=== PATIENT | female | born 1975 | race Caucasian/White ===

== ENCOUNTER 2024-02-16 22:43 | Emergency (ER) | payer OTHER, SELFPAY ==
--- NOTE | ~2024-02-16 | CT_ITS ---
EXAMINATION: CT abdomen pelvis wo con DATE: 02/17/2024 00:10 INDICATION: Left flank pain. TECHNIQUE: Computed tomography (CT) of the abdomen and pelvis was performed without intravenous contr ast. Automated exposure control and iterative reconstruction technique were employed. The dose-length product was 1580.15 mGy-cm. COMPARISON: None. FINDINGS: The visualized portions of the lung bases are clear without pneumonia or pleural effusion. The heart size is normal. No pericardial effusion. There is a small sliding hiatal hernia. The liver is normal. There is a gallstone in the gallbladder, which is normal in size. The spleen, pancreas, an d adrenal glands are normal. There is a 4 mm stone in right kidney. There is mild left hydronephrosis and hydroureter. There is a 6 mm stone in distal left ureter. There are no dilated loops of bowel. T he appendix is normal. There are no pathologically enlarged lymph nodes. There is no free intraperito priti fluid. There is mild thoracic and lumbar spondylosis. IMPRESSION: 1. 6 mm stone in distal left ureter with mild left hydronephrosis and hydroureter. 2. 4 mm nonobstructing right kidney stone. 3. Small sliding hiatal hernia. Reviewed, dictated and finalized at location E. IMPRESSION: 1. 6 mm stone in distal left ureter with mild left hydronephrosis and hydrouret er. 2. 4 mm nonobstructing right kidney stone. 3. Small sliding hiatal hernia.
[2024-02-16 22:52] VITALS: BP 168/81; PULSE 83; RESP 23; TEMP 37.1; O2SAT 100
[2024-02-16 23:07] LABS: Basophils Absolute Auto 0.1 K/mm3 (0.0-0.1); Basophils Percent Auto 0.5 % (0.2-1.2); Eosinophils Absolute Auto 0.2 K/mm3 (0-0.3); Eosinophils Percent Auto 1.6 % (0-4.4); Hematocrit 37.2 % (37.0-47.0); Hemoglobin 12.6 g/dL (12.0-15.0); Immature Granulocyte Absolute 0.06 K/mm3 (0.00-0.031); Immature Granulocyte Percent A 0.5 % (0-0.5); Lymphocytes Absolute Auto 2.45 K/mm3 (0.9-3.2); Lymphocytes Percent Auto 21.2 % (18.3-44.2); Mean Corpuscular HGB Conc 33.9 g/dl (32-36); Mean Corpuscular Volume 91.6 fl (80-100); Mean Platelet Volume 9.4 fl (7.4-10.4); Monocytes Absolute Auto 0.6 K/mm3 (0.1-0.6); Monocytes Percent Auto 4.9 % (2.6-8.5); Neutrophils Absolute Auto 8.2 K/mm3 (1.3-6.7); Neutrophils Percent Auto 71.3 % (45.5-73.1); Platelet Count Result 228 k/mm3 (150-375); Red Blood Count 4.06 M/mm3 (4.2-5.4); Red Cell Distribution Width 12.1 % (11.5-14.5); White Blood Count 11.6 K/mm3 (4.5-10.0)
[2024-02-16 23:19] LABS: Alanine Aminotransferase 21 U/L (6-35); Albumin Level 4.4 g/dL (3.5-5.1); Alkaline Phosphatase 94 U/L (38-126); Anion Gap 7 mmol/L (4-12); Aspartate Amino Transferase 25 U/L (14-36); Bilirubin,Total 0.4 mg/dL (0.2-1.3); Blood Urea Nitrogen 16 mg/dL (7-17); Calcium 8.8 mg/dL (8.4-10.2); Carbon Dioxide 27 mmol/L (22-30); Chloride 104 mmol/L (98-107); Estimated CRCL calculation 82 ml/min; Estimated Glomerular Filt Rate 53; Glucose 120 mg/dL (65-110); Lipase 186 U/L (23-300); Potassium 3.6 mmol/L (3.4-5.0); Sodium 138 mmol/L (137-145)
--- NOTE | 2024-02-16 23:24 | PC.NURSE ---
Pt continues to be restless on stretcher, with c/o 10/10 pain. DARRYN Mock notified.
--- NOTE | 2024-02-16 23:31 | ECG_ITS ---
SEE SCANNED COPY FOR CONFIRMED REPORT MTDD
--- NOTE | 2024-02-16 23:34 | ED.ABDPAIN ---
HPI - Abdominal Pain General Chief Complaint: Abdominal Pain Stated Complaint: abdominal pain Time Seen by Provider: 02/16/24 23:01 Source: patient Limitations: no limitations History of Present Illness HPI narrative: Patient is a 48-year-old female presented emergency department complaining of left flank pain and left lower quadrant abdominal pain that seem to be connected, started a couple hours ago, feels like a history of something she has had the past in which she thinks she had a kidney stone at that time, notes the pain is constant, describes the pain is all of the above when trying to describe the nature of the pain, has an OCD making the pain better or worse, missed associated nausea, has not tried anything for the pain. Patient denies any recent injuries or recent illness. Patient denies diarrhea. Patient has some urinary discomfort for. Related Data Allergies Allergy/AdvReac Type Severity Reaction Status Date / Time lithium Allergy Unknown HIVES Verified 06/09/11 10:42 DAIRY Allergy Unknown Uncoded 02/16/24 23:37 EGGS Allergy Unknown Uncoded 02/16/24 23:37 PEANUTS Allergy Unknown Uncoded 02/16/24 23:37 SHELLFISH Allergy Unknown Uncoded 02/16/24 23:37 WHEAT Allergy Unknown Uncoded 02/16/24 23:37 Review of Systems Review of Systems: All systems reviewed & are unremarkable except as noted in HPI and below PMFSH Comments At time of signature, I have reviewed and agree with nursing past medical, surgical, social and family history unless otherwise noted. Please see the nursing chart for further information. There is no relevant family history pertinent to the presenting complaint. Exam Narrative: CONST: Moderate acute distress complaining of left flank pain and nausea and retching. HENMT: Head is normocephalic and atraumatic. Moist mucous membranes. No posterior oropharynx erythema. EYES: No conjunctival icterus, injection, or pallor. PERRL. NECK: No meningeal signs. RESP: Able to speak in full sentences. Normal respiratory effort. CTAB. CARDIO: Regular rate. Regular rhythm. 2+ DP and radial pulses bilaterally. GI: Nondistended. No tenderness to palpation. Soft. : Mild left CVA tenderness to palpation. SKIN: No rashes or lesions noted on exposed skin. NEURO: Oriented x3. Moves all extremities. EXTREM/MSK/BACK: No pedal edema. Course Vital Signs Vital signs: Vital Signs Temperature 98.8 F 02/16/24 22:52 Pulse Rate 83 02/16/24 22:52 Respiratory Rate 23 H 02/16/24 22:52 Blood Pressure 168/81 H 02/16/24 22:52 Pulse Oximetry 100 02/16/24 22:52 Oxygen Delivery Room Air 02/16/24 22:52 Temperature 98.8 F 02/16/24 22:52 Pulse Rate 81 02/17/24 00:29 Respiratory Rate 20 02/17/24 00:29 Blood Pressure 168/81 H 02/16/24 22:52 Pulse Oximetry 97 02/17/24 00:29 Oxygen Delivery Room Air 02/16/24 22:52 MDM - Abdominal Pain MDM Narrative Medical decision making narrative: Patient presents with the above complaint. Initial vitals are remarkable for no significant abnormalities. Physical examination as noted above. Plan discussed: Laboratory analysis, CT abdomen pelvis, morphine, IV fluids, Zofran, EKG. Differential diagnosis includes was not limited to ureterolithiasis, diverticulitis, endometriosis, pancreatitis, ovarian cyst, ovarian torsion, other acute surgical abdominal process. Patient was reassessed at the bedside. Pain is resolved. Patient is in no acute distress. The patient has remained stable throughout the entire ED visit. Counseled patient regarding diagnostic results and potential diagnosis. Anticipatory guidance provided. Patient instructed to follow up with urology in 1 week. Strain all urine. Patient counseled on: false reassurance from an emergency department evaluation; no current evidence of a medical emergency; return immediately for any new, recurrent, worsening, concerning, or refractory symptoms. Patient prescribed toradol and flomax. Pr
[2024-02-16] MEDS: SODIUM CHLORIDE 0.9% IV 500 ML 999 ML IV CONT (23:36)
[2024-02-16] MEDS: MORPHINE SULFATE (*CRX) 4 MG/ML INJ IV PUSH (23:37)
[2024-02-16] MEDS: ONDANSETRON INJ 4 MG/2 ML VIAL IV PUSH (23:37)
[2024-02-17] MEDS: MORPHINE SULFATE (*CRX) 4 MG/ML INJ IV PUSH (00:15)
[2024-02-17 00:29] VITALS: PULSE 81; RESP 20; O2SAT 97
[2024-02-17] MEDS: KETOROLAC 15 MG/ML VIAL (*BKC) IV PUSH (00:49)
[2024-02-17 01:06] LABS: Appearance Urine Clear (Clear); Bilirubin Urine Negative (Negative); Blood Urine Negative (Negative); Color Urine Yellow (Yellow); Glucose Urine UA Negative (Negative); Ketones Urine Negative (Negative); Leukocyte Esterase Ur Negative LEU/UL (Negative); Nitrate Urine Negative (Negative); Protein Urine Negative (Negative); Specific Grav Ur 1.012 (1.001-1.035); Urobilinogen Urine 0.2 mg/dL (<2.0); pH Urine 8.5 (5.0-9.0)
[2024-02-17 01:10] LABS: Add Urine Microscopic? NO
[2024-02-17 01:18] VITALS: BP 176/110; PULSE 98; RESP 21; O2SAT 97
[2024-02-17] MEDS: TAMSULOSIN HCL 0.4 MG CAPSULE PO (01:46)
== END 2024-02-17 01:51 | disposition home or self-care (01) ==
PROVIDERS: Emergency Provider Student in an Organized Health Care Education/Training Program
DX: N13.2 Hydronephrosis with renal and ureteral calculous obstruction (principal); R94.31 Abnormal electrocardiogram [ECG] [EKG]; K44.9 Diaphragmatic hernia without obstruction or gangrene
CPT/HCPCS: 36415; 74176; 80053; 81003; 81025; 83690; 85025; 93005; 96361; 96374; 96375; 99284; A9270; J1885; J2270; J2405; J7040

== ENCOUNTER 2025-09-15 15:35 | Emergency (ER) | payer OTHER, SELFPAY ==
--- NOTE | ~2025-09-15 | XR_ITS ---
EXAMINATION: XR chest 1V 09/15/2025 17:27 INDICATION: Dizziness PROCEDURE: AP view of the chest COMPARISON: 10/26/2008 FINDINGS: The lungs are clear. The cardiomediastinal silhouette is within normal limits. There are no pleural effusions. There is no pneumothorax suspected. IMPRESSION: 1: NO ACUTE CARDIOPULMONARY DISEASE. Reviewed, dictated and finalized at location O. A STRATEGIST
--- NOTE | ~2025-09-15 | CT_ITS ---
EXAMINATION: CT BRAIN W/O DATE: 09/15/2025 17:24 INDICATION: Headache. Hypertension. TECHNIQUE: Computed tomography (CT) of the head was performed without intravenous contrast. The dose-length product was 605.33 mGy-cm. Automated exposure control and iterative reconstruction technique were employed. COMPARISON: No prior studies for comparison. FINDINGS: Normal brain parenchymal volume for age. Normal dodson-white differentiation. No acute intracranial hemorrhage, infarction, mass or mass effect. No ventriculomegaly or midline shift. Midline sagittal images demonstrate a normal corpus callosum, craniovertebral junction and sella turcica. Basilar cisterns are patent. Paranasal sinuses and mastoids are pneumatized. No depressed skull fractures. IMPRESSION: 1. No acute intracranial abnormality. Reviewed, dictated and finalized at location O. ENTER'S HELPER
[2025-09-15 15:43] VITALS: BP 201/113; PULSE 81; RESP 19; TEMP 36.6; O2SAT 99
--- NOTE | 2025-09-15 17:12 | ED_ITS ---
HPI - Recheck/Abnormal Lab/Rx General Chief Complaint: Recheck/Abnormal Lab/Rx <Magui Gaitan PA-C - Last Filed: 09/16/25 17:09> Stated Complaint: HTN <Magui Gaitan PA-C - Last Filed: 09/16/25 17:09> Time Seen by Provider: 09/15/25 17:12 <Magui Gaitan PA-C - Last Filed: 09/16/25 17:09> Focused HPI: This is a 50 year old female that presents to the ER for elevated blood pressure readings. Ongoing over the last couple of weeks. Reports feeling off GENERAL: Well-appearing, well-nourished, and in no acute distress. HEAD: Normocephalic, atraumatic. CHEST: Clear to auscultation. ?No respiratory distress. HEART: Regular rate and rhythm.? NEURO: ?Alert and oriented x3. Patient screened in triage and initial orders placed.? ?Additional care and disposition to be based upon?diagnostic testing and treatment. <Magui Gaitan PA-C - Last Filed: 09/16/25 17:09> History of Present Illness HPI narrative: Agree with above HPI. Patient's present complaints include confusion, neck pain, headache, and dizziness. She reports significant history of migraines. Denies chest pain/shortness of breath, fevers/chills, or any recent history of trauma. <NARA Hannon Last Filed: 09/16/25 01:49> Related Data Allergies/Adverse Reactions: Allergies Allergy/AdvReac Type Severity Reaction Status Date / Time lithium Allergy Unknown HIVES Verified 09/15/25 15:36 DAIRY Allergy Unknown Uncoded 02/16/24 23:37 EGGS Allergy Unknown Uncoded 02/16/24 23:37 PEANUTS Allergy Unknown Uncoded 02/16/24 23:37 SHELLFISH Allergy Unknown Uncoded 02/16/24 23:37 WHEAT Allergy Unknown Uncoded 02/16/24 23:37 <Magui Gaitan PA-C - Last Filed: 09/16/25 17:09> Review of Systems 2 Review of Systems: All systems reviewed & are unremarkable except as noted in HPI and below <NARA Hannon Last Filed: 09/16/25 01:49> Exam 2 Narrative: GENERAL: Well-appearing, well-nourished, and in no acute distress. HEAD: Normocephalic, atraumatic. EYES: PERRLA and EOMI. ENT: Nares clear, no rhinorrhea or epistaxis. Mucous membranes moist. Oropharynx without tonsillar hypertrophy exudate or other lesions. Bilateral TMs pearly dodson non-bulging NECK: Supple. No adenopathy or masses. No carotid bruits or JVD CHEST: Clear to auscultation. No respiratory distress. No wheezes rales or rhonchi HEART: Regular rate and rhythm. No murmur heard. Normal peripheral pulses. ABDOMEN: Soft, nontender, nondistended, normal active bowel sounds. EXTREMITIES: Normal range of motion. No edema. SKIN: Warm, dry, no rash. NEURO: A&O X3. Speech clear. Follows commands. CN II-XII intact. Sensation grossly intact. Steady gait. No ataxic movements. Strength 5/5 in upper and lower extremities bilaterally. [id number] testing intact bilaterally. No pronator drift. PSYCH: Normal mood and affect <NARA Hannon - Last Filed: 09/16/25 01:49> Course Vital Signs Vital signs: Vital Signs Temperature 97.8 F 09/15/25 15:43 Pulse Rate 81 09/15/25 15:43 Respiratory Rate 19 09/15/25 15:43 Blood Pressure 201/113 H 09/15/25 15:43 Pulse Oximetry 99 09/15/25 15:43 Oxygen Delivery Room Air 09/15/25 15:43 Temperature 98.0 F 09/15/25 18:10 Pulse Rate 81 09/15/25 21:03 Respiratory Rate 18 09/15/25 21:03 Blood Pressure 152/75 H 09/15/25 21:03 Pulse Oximetry 99 09/15/25 21:03 Oxygen Delivery Room Air 09/15/25 15:43 <Magui Gaitan PA-C - Last Filed: 09/16/25 17:09> Vital Signs Temperature 97.8 F 09/15/25 15:43 Pulse Rate 81 09/15/25 15:43 Respiratory Rate 19 09/15/25 15:43 Blood Pressure 201/113 H 09/15/25 15:43 Pulse Oximetry 99 09/15/25 15:43 Oxygen Delivery Room Air 09/15/25 15:43 Temperature 98.0 F 09/15/25 18:10 Pulse Rate 81 09/15/25 21:03 Respiratory Rate 18 09/15/25 21:03 Blood Pressure 152/75 H 09/15/25 21:03 Pulse Oximetry 99 09/15/25 21:03 Oxygen Delivery Room Air 09/15/25 15:43 <NARA Hannon - Last Filed: 09/16/25 01:49> [facility] MDM Narrative Medical decision making narrative: This is a 50 year old female that presents to the ER for elevated blood pressure readings. Ongoing over the last couple of weeks. Reports feeling off as well as confusion, neck pain, headache, and dizziness. She reports significant history of migraines. Denies chest pain/shortness of breath, fevers/chills, or any recent history of trauma. Upon initial assessment patient appears nontoxic with stable vitals including a blood pressure of 167/75 while I was performing my assessment. Imaging demonstrates no acute abnormalities. EKGs and labs are without significant high risk changes. Administered meclizine and Tylenol which improved patient's symptoms. Blood pressure prior to discharge was 152/75. Differential diagnosis and treatment plan were discussed with the patient. Patient agrees with discussion and after shared medical decision making agrees with plan of care. All questions were answered to the patient's satisfaction. The patient is appropriate for outpatient treatment and follow-up. Given reasons to return. < NARA Hannon - Last Filed: 09/16/25 01:49> Differential Diagnosis Differential Diagnosis: Differential diagnostic considerations for headache include ICH, IC infx, migraine, tension KEENE, CVA/TIA, vasculitis/arteritis, cluster headache, dissection (carotid/vertebral), tumor/mass/abscess, thrombosis, meningitis, sinusitis, post-concussion syndrome. <NARA Hannon - Last Filed: 09/16/25 01:49> Lab Data Result diagrams: 09/15/25 17:43 09/15/25 17:43 <Magui Gaitan PA-C - Last Filed: 09/16/25 17:09> Labs: Lab Results 09/15/25 Range/Units 17:43 WBC 8.0 (4.5-10.0) K/mm3 RBC 3.88 L (4.2-5.4) M/mm3 Hgb 11.9 L (12.0-15.0) g/dL Hct 35.2 L (37.0-47.0) % MCV 90.7 (80-100) fl MCH 30.7 (26-34) pg MCHC 33.8 (32-36) g/dl RDW 12.8 (11.5-14.5) % Plt Count 187 (150-375) k/mm3 MPV 9.3 (7.4-10.4) fl Immature Gran % (Auto) 0.4 (0-0.5) % Neut % (Auto) 61.6 (45.5-73.1) % Lymph % (Auto) 29.6 (18.3-44.2) % [place] % (Auto) 5.8 (2.6-8.5) % Eos % (Auto) 2.1 (0-4.4) % Baso % (Auto) 0.5 (0.2-1.2) % Lymph # (Auto) 2.36 (0.9-3.2) K/mm3 [place] # (Auto) 0.5 (0.1-0.6) K/mm3 Eos # (Auto) 0.2 (0-0.3) K/mm3 Baso # (Auto) 0.0 (0.0-0.1) K/mm3 Abs Immat Gran (auto) 0.03 (0.00-0.031) K/mm3 Absolute Neuts (auto) 4.9 (1.3-6.7) K/mm3 Absolute Nucleated RBC 0.000 (0.0-0.012) K/mm3 Nucleated RBC % 0.0 (0.0-0.2) % Sodium 136 L (137-145) mmol/L Potassium 3.9 (3.4-5.0) mmol/L Chloride 103 (98-107) mmol/L Carbon Dioxide 29 (22-30) mmol/L Anion Gap 4 (4-12) mmol/L BUN 12 (7-17) mg/dL Creatinine 0.83 (0.7-1.0) mg/dL Estim Creat Clear Calc 115 ml/min Estimated GFR > 60 (59 - ) Glucose 88 (65-110) mg/dL Calcium 8.6 (8.4-10.2) mg/dL Total Bilirubin 0.5 (0.2-1.3) mg/dL AST 32 (14-36) U/L ALT 25 (6-35) U/L Alkaline Phosphatase 99 (38-126) U/L Total Protein 7.3 (6.3-8.2) g/dL Albumin 3.9 (3.5-5.1) g/dL <Magui Gaitan PA-C - Last Filed: 09/16/25 17:09> Lab Results 09/15/25 Range/Units 17:43 WBC 8.0 (4.5-10.0) K/mm3 RBC 3.88 L (4.2-5.4) M/mm3 Hgb 11.9 L (12.0-15.0) g/dL Hct 35.2 L (37.0-47.0) % MCV 90.7 (80-100) fl MCH 30.7 (26-34) pg MCHC 33.8 (32-36) g/dl RDW 12.8 (11.5-14.5) % Plt Count 187 (150-375) k/mm3 MPV 9.3 (7.4-10.4) fl Immature Gran % (Auto) 0.4 (0-0.5) % Neut % (Auto) 61.6 (45.5-73.1) % Lymph % (Auto) 29.6 (18.3-44.2) % [place] % (Auto) 5.8 (2.6-8.5) % Eos % (Auto) 2.1 (0-4.4) % Baso % (Auto) 0.5 (0.2-1.2) % Lymph # (Auto) 2.36 (0.9-3.2) K/mm3 [place] # (Auto) 0.5 (0.1-0.6) K/mm3 Eos # (Auto) 0.2 (0-0.3) K/mm3 Baso # (Auto) 0.0 (0.0-0.1) K/mm3 Abs Immat Gran (auto) 0.03 (0.00-0.031) K/mm3 Absolute Neuts (auto) 4.9 (1.3-6.7) K/mm3 Absolute Nucleated RBC 0.000 (0.0-0.012) K/mm3 Nucleated RBC % 0.0 (0.0-0.2) % Sodium 136 L (137-145) mmol/L Potassium 3.9 (3.4-5.0) mmol/L Chloride 103 (98-107) mmol/L Carbon Dioxide 29 (22-30) mmol/L Anion Gap 4 (4-12) mmol/L BUN 12 (7-17) mg/dL Creatinine 0.83 (0.7-1.0) mg/dL Estim Creat Clear Calc 115 ml/min Estimated GFR > 60 (59 - ) Glucose 88 (65-110) mg/dL Calcium 8.6 (8.4-10.2) mg/dL Total Bilirubin 0.5 (0.2-1.3) mg/dL AST 32 (14-36) U/L ALT 25 (6-35) U/L Alkaline Phosphatase 99 (38-126) U/L Total Protein 7.3 (6.3-8.2) g/dL Albumin 3.9 (3.5-5.1) g/dL <NARA Hannon Last Filed: 09/16/25 01:49> Imaging Data Radiologist's impression: ITS Impressions Head CT 09/15/25 17:27 IMPRESSION: 1. No acute intracranial abnormality. Chest X-Ray 09/15/25 17:31 IMPRESSION: 1: NO ACUTE CARDIOPULMONARY DISEASE. <Magui Gaitan PA-C - Last Filed: 09/16/25 17:09> ITS Impressions Head CT 09/15/25 17:27 IMPRESSION: 1. No acute intracranial abnormality. Chest X-Ray 09/15/25 17:31 IMPRESSION: 1: NO ACUTE CARDIOPULMONARY DISEASE. <NARA Hannon Last Filed: 09/16/25 01:49> Critical Care Time Critical Care Time Critical Care Time: No <MISTY Powers Last Filed: 09/16/25 17:09> Discharge Plan Discharge Clinical Impression: Hypertension, uncontrolled <MISTY Powers Last Filed: 09/16/25 17:09> Patient Disposition: Home <MISTY Powers Last Filed: 09/16/25 17:09> Condition: Stable <MISTY Powers Last Filed: 09/16/25 17:09> Additional Instructions: Return to the emergency department if you experience fever, chest pain, shortness of breath, abdominal pain with nausea and vomiting, weakness, numbness/tingling, or any other symptoms that are concerning to you. Follow up with primary care doctor. <MISTY Powers Last Filed: 09/16/25 17:09> Patient Language: [place]ian <MISTY Powers Last Filed: 09/16/25 17:09> Prescriptions: No Action ketorolac 10 mg tablet 10 mg PO Q8H PRN (Reason: pain) 5 Days Qty: 15 0RF Rx Instructions: maximum total duration of 5 days from all oral, intranasal, or parenteral formulations acetaminophen 500 mg tablet 500 mg PO Q6H PRN (Reason: pain) Qty: 30 0RF tamsulosin [Flomax] 0.4 mg capsule 0.4 mg PO DAILY 14 Days Qty: 14 0RF <MISTY Powers Last Filed: 09/16/25 17:09> Follow-up/Referrals: UNKNOWN,DOCTOR [Non-Staff] <MISTY Powers Last Filed: 09/16/25 17:09>
--- NOTE | 2025-09-15 17:13 | ECG_ITS ---
Test Date: 2025-09-15 18:23:59 Measurements Intervals [place] Rate: 74 P: 44 LA: 124 QRS: 48 QRSD: 93 T: 71 QT: 393 QTc: 439 Interpretive Statements SINUS RHYTHM MINIMAL Q WAVES- INF/LAT LEADS BASELINE ARTIFACT- V2-V3 BORDERLINE ECG No previous ECG available for comparison Electronically Signed On 09-15-2025 20:39:00 DISPUTE COORDINATOR by Kentrell Alexander D.O.
[2025-09-15 17:51] LABS: Hematocrit 35.2 % (37.0-47.0); Hemoglobin 11.9 g/dL (12.0-15.0); Immature Granulocyte Percent A 0.4 % (0-0.5); Lymphocytes Absolute Auto 2.36 K/mm3 (0.9-3.2); Mean Corpuscular HGB Conc 33.8 g/dl (32-36); Mean Corpuscular Hemoglobin 30.7 pg (26-34); Mean Corpuscular Volume 90.7 fl (80-100); Nucleated Red Blood Cells Absolute Auto 0.000 K/mm3 (0.0-0.012); Nucleated Red Blood Cells Perc 0.0 % (0.0-0.2); Platelet Count Result 187 k/mm3 (150-375); Red Blood Count 3.88 M/mm3 (4.2-5.4); White Blood Count 8.0 K/mm3 (4.5-10.0)
[2025-09-15 18:04] LABS: Alanine Aminotransferase 25 U/L (6-35); Albumin Level 3.9 g/dL (3.5-5.1); Alkaline Phosphatase 99 U/L (38-126); Anion Gap 4 mmol/L (4-12); Aspartate Amino Transferase 32 U/L (14-36); Bilirubin,Total 0.5 mg/dL (0.2-1.3); Blood Urea Nitrogen 12 mg/dL (7-17); Calcium 8.6 mg/dL (8.4-10.2); Carbon Dioxide 29 mmol/L (22-30); Chloride 103 mmol/L (98-107); Estimated CRCL calculation 115 ml/min; Estimated Glomerular Filt Rate > 60; Glucose 88 mg/dL (65-110); Potassium 3.9 mmol/L (3.4-5.0); Sodium 136 mmol/L (137-145); Total Protein 7.3 g/dL (6.3-8.2)
[2025-09-15 18:06] VITALS: RESP 14
[2025-09-15 18:10] VITALS: BP 167/75; PULSE 76; RESP 16; TEMP 36.7; O2SAT 99
[2025-09-15] MEDS: MECLIZINE HCL 25 MG TABLET PO (18:51)
[2025-09-15] MEDS: ACETAMINOPHEN 500 MG TABLET 1000 MG PO (18:51)
[2025-09-15 18:53] VITALS: BP 152/86; PULSE 84; RESP 14; O2SAT 100
[2025-09-15 20:13] VITALS: BP 150/78; PULSE 77; RESP 18; O2SAT 99
[2025-09-15 21:03] VITALS: BP 152/75; PULSE 81; RESP 18; O2SAT 99
== END 2025-09-15 21:04 | disposition home or self-care (01) ==
PROVIDERS: Physician Assistant
DX: I10 Essential (primary) hypertension (principal); R94.31 Abnormal electrocardiogram [ECG] [EKG]
CPT/HCPCS: 36415; 70450; 71045; 80053; 85025; 93005; 99284; A9270